=== PATIENT | female | born 1985 | race Two or more races ===

== ENCOUNTER → 2018-08-08 | Outpatient (CLI) | payer OTHER ==
[~2018-08-08] MED LIST: CYCL10TA2 PO; DICL50TA2 PO; DULO30CA2 PO; RANI150T2 PO
--- NOTE | 2018-08-08 17:57 | PAIN ---
DATE OF SERVICE: 08/08/2018 INITIAL CONSULTATION FOR PAIN CLINIC CHIEF COMPLAINT: Low back pain. HISTORY OF PRESENT ILLNESS: This is a 33-year-old female who presents with history of pain in the low back, right greater than left for about 4 months or so, worse in May 2018. The patient reports that it is aching and dull, sharp, stabbing, tingling with numbness across the back, again worse on the right than the left, burning and aching, has been going on for several months now. The patient reports it awakens her from sleep at least twice at night. It does not affect her bowel or bladder control, but sometimes, it affects her ability to walk when she is having pain in the right side more than left. The patient reports she did have past physical therapy also doing stretching and strengthening exercises on her own daily, had a history of outside facility with 2 sets of facet joint injections in May 2018 and June 2018 with reported 80% improvement. For about 5 weeks after the injections, the patient reports she had a third set of injections, but did not have significant improvement, but the first 2, had 80% for about 5 weeks. The patient reports radiofrequency was never done, but it was discussed. The patient rates her disability rate from 0-10, 10 being the worst, is a 5-6 for family home responsibilities, social activity, occupation, sexual behavior, self-care and life support activities and is a 7 on a scale of 10 with recreational activities. The patient did have MRI scan of the lumbar spine that showed some mild degenerative changes at L4-L5 and L5-S1 without foraminal narrowing or stenosis with minimal canal narrowing at L4-L5. Again, the patient reports no radiation to lower extremities. The pain is staying in her back, worse with extension of the spine and axial loading of the lower lumbar spine, more noticeable with standing or sitting, sometimes better with lying down, but again, it awakens her from sleep frequently. PAST MEDICAL HISTORY: Significant for arthritis, gastroesophageal reflux, cigarette smoking less than a pack a day and depression. PAST SURGICAL HISTORY: Includes tonsillectomy and tubal ligation. CURRENT MEDICATIONS: Include Cymbalta, ranitidine, cyclobenzaprine and diclofenac. ALLERGIES: THE PATIENT IS ALLERGIC TO PENICILLIN. FAMILY HISTORY: Significant for cancers, high blood pressure and heart disease. SOCIAL HISTORY: The patient does not drink alcohol. Smokes less than a pack of cigarettes a day, has for about 10 years. Single, has 3 children, living at home, lives locally in [place], [place]. REVIEW OF SYSTEMS: The patient's review of systems is positive for those items mentioned in the history of present illness. All systems reviewed and otherwise negative. It is complete, full and well documented on the patient's chart. PHYSICAL EXAMINATION: VITAL SIGNS: The patient's blood pressure is 109/68, pulse 78, respirations 16, temperature is 98.2 degrees Fahrenheit. Height is 5 feet 7 inches, weight is 203 pounds. GENERAL: The patient is awake, alert, oriented, appropriate, very pleasant demeanor. HEENT: Head shows normocephalic, atraumatic. Extraocular movements are intact and symmetrical. Oral cavity: Mucous membranes are moist and pink. Dentition is intact. NECK: Shows anterior throat supple without palpable lymphadenopathy noted. Swallow reflex symmetrical. CHEST: Shows normal on inspection. Breath sounds clear to auscultation bilaterally. HEART: Shows S1, S2 clear. No murmurs auscultated. ABDOMEN: Soft, nontender, nondistended. No palpable organomegaly is noted. No rebound or guarding demonstrated. BACK: Shows spine grossly in the midline. Normal appearing thoracic kyphosis and lumbar lordotic curvature. Lumbar paraspinous muscle shows symmetrical on inspection, on palpation shows some moderate tenderness diffusely throughout the upper, middle and lower distribution of paraspinous muscles, slightly more on the right lower aspect than the left. No hypertrophy is noted. No tenderness over the spinous processes. The patient has good rotational motion both laterally greater than 10 degrees with some moderate tenderness with 10 degrees of lateral rotation on the right, but not the left. Extension, however, past 10 degrees cause significant pain in the low back, greater on the right than the left, but present bilaterally and reproduces the patient's normal pain by her report, forward flexion decreases this pain at 45 degrees and is performed without difficulty. EXTREMITIES: The patient's lower extremities show deep tendon reflexes at 2+ in the patellar, 1+ in the tendo-calcaneus tendons are equal. Motor exam is strong with 5/5 dorsiflexion, extension, quadriceps and hamstring flexion. Peripheral pulses are 1+ posterior tibial. No peripheral edema is noted. Lower extremities are warm and dry to touch, equal in color and appearance. Straight leg raising noted to be negative for reproduction of radicular symptoms and also negative Gaenslen's and Ant's maneuvers bilaterally. The patient is able to stand, stand on her toes without significant difficulty or loss of balance, not using any assistive devices to ambulate. Has a normal appearing gait. The patient's skin is warm and dry, good turgor. No edema. No sores, rashes or bruising. IMPRESSION: 1. This is a 33-year-old female with approximately 4-month history of increasing low back pain bilaterally, worse on the right than the left consistent with facet syndrome pain. 2. The patient is status post outside facility facet joint injections bilaterally at L4-L5 and L5-S1 with reported 80% improvement for 5 weeks with the injections. 3. Cigarette smoking. 4. Arthritis. 5. Gastroesophageal reflux. PLAN: Options were discussed with the patient including conservative medical management, continued physical therapies, interventional techniques. She would like to pursue interventional techniques as she has had 2 sets of facet joint injections performed already with excellent results. She would like to move on to radiofrequency ablation. We discussed this with her and we will preauthorize this. If not preauthorized because it was done a different facility, we will preauthorize the patient for repeat facet joint injections to verify the amount of relief that she obtained from her previous site of treatment and location of treatment. The patient understands and agrees. We will have the patient return in approximately 1-1/2 weeks and plan on radiofrequency ablation if approved. If not, we will plan on the facet joint injections, L4-L5 and L5-S1 bilaterally. JOSSE POOLE MD DR: HIMANSHU/kp JOB#: [id number] / [id number]
== END | disposition home or self-care (01) ==
LOC: PNCL 10:22
PROVIDERS: ATTEND Anesthesiology
DX: M54.5 Low back pain (principal); F17.210 Nicotine dependence, cigarettes, uncomplicated; K21.9 Gastro-esophageal reflux disease without esophagitis; M19.90 Unspecified osteoarthritis, unspecified site; Z88.0 Allergy status to penicillin; Z98.1 Arthrodesis status; Z82.49 Family history of ischemic heart disease and other diseases of the circulatory system
CPT/HCPCS: G0463

== ENCOUNTER → 2018-08-25 | Outpatient (CLI) | payer OTHER ==
[~2018-08-25] MED LIST changes: +BUPIVACAINE MPF 0.25% 10 ML VIAL. ONE; +LIDOCAINE 1% PF 2 ML VIAL. ONE; +LIDOCAINE 2% PF Vial for OR 5 ML VIAL. ONE; +methylPREDNISolone ACETATE 40 MG/ML VIAL. ONE; +methylPREDNISolone ACETATE 80 MG/ML VIAL. ONE
--- NOTE | 2018-08-25 15:06 | PAIN ---
DATE OF SERVICE: 08/25/2018 DIAGNOSIS: Low back pain with lumbar and lumbosacral spondylosis. HISTORY OF PRESENT ILLNESS: The patient is a 33-year-old female who returns for followup status post previous facet joint medial branch blocks with very good relief, approximately 80% improvement for 5 weeks after her diagnostic blocks were performed. This was at [facility]. She did very well, but relocated as they were unable to repeat this or proceed with radiofrequency ablation, which had been discussed previously. The patient came to our clinic on her last visit with these results and with the records from [facility] justifying this and we had preauthorized her for radiofrequency ablation of bilateral L4-L5 and L5-S1 medial facet branches. The patient reports still significant pain across the low back, left slightly worse than the right, without radiation into lower extremities, rated as 6 on a scale of 10 at its worst, 5 on average and a 5 at its least, and is a 6 today. The patient reports it as sharp, shooting, burning, stabbing across the low back, shooting across the back, again from the left to the right. The patient reports no new motor or sensory deficits. It is much worse with standing, walking, changing positions. It is better with axial loading and extension of the lumbar spine as well as rotation, left greater than right, with rotation of her spine where previously the right side was worse, now the left side is becoming more noticeable. The patient reports no new motor or sensory deficits, no new changes. The patient reports it does awaken her from sleep at night, but not every night. PHYSICAL EXAMINATION: VITAL SIGNS: The patient's blood pressure 134/77, pulse 111, respirations 16, temperature is 97.8 degrees Fahrenheit, and weight is 203 pounds. GENERAL: The patient is awake, alert, oriented, appropriate, very pleasant demeanor. HEENT: Head shows normocephalic, atraumatic. Extraocular muscles are intact and symmetrical. Oral cavity, mucous membranes are moist and pink. Dentition is intact. NECK: Shows anterior throat supple without palpable lymphadenopathy noted. Swallow reflex symmetrical. CHEST: Shows normal on inspection. Breath sounds clear to auscultation bilaterally. HEART: Shows S1, S2 clear. No murmurs auscultated. ABDOMEN: Soft, nontender, nondistended. No palpable organomegaly is noted. No rebound or guarding demonstrated. BACK: The patient's back shows spine grossly in the midline, normal appearing thoracic kyphosis and lumbar lordotic curvature. Lumbar paraspinous muscle shows symmetrical on inspection, with palpation shows some moderate tenderness diffusely bilaterally in the low lumbar distribution, essentially right equal to left without atrophy, hypertrophy, no trigger points, no radiation of pain, no tenderness over the sacrum or sacroiliac regions. Over the spinous processes with direct palpation with rotation shows some moderate tenderness reported with left and right rotation greater than 10 degrees as well as extension greater than 10 degrees with significant pain bilaterally, somewhat worse on the left than the right on exam today, decreased with forward flexion at 45 degrees. EXTREMITIES: The patient's lower extremities show deep tendon reflexes 2+ in the patellar, 1+ tendo calcaneus tendons. Motor exam is 5/5 with dorsiflexion, extension, quadriceps and hamstring flexion, equal. Peripheral pulses are 1+ posterior tibial. No peripheral edema is noted bilaterally. Options were discussed with the patient. The patient's old chart was reviewed as her current medication regimen updated. Current review of systems updated today as well. We will proceed with radiofrequency ablation of the bilateral L4-L5 and L5-S1 medial facet branches under sterile prep and drape using fluoroscopic guidance. Risks were discussed including but not limited to bleeding, infection, possibility of epidural hematoma and subsequent neurological compromise, dural punctures, headaches, spinal cord and/or nerve damage, side effects of steroid medication, exposure to fluoroscopy, potential thermal damage of surrounding nerves and structures, and permanent damage of the motor nerves as well as poor results regarding pain control. The patient understands and wished to proceed. The patient will return to clinic in approximately 3 weeks for followup, was counseled on return appointment, activity level and side effects to be aware of. DIAGNOSES: Low back pain with lumbar and lumbosacral spondylosis. PROCEDURE: Bilateral radiofrequency ablation L4-L5 and L5-S1 medial facet branches under sterile prep and drape using local anesthetic and C-arm fluoroscopic guidance. MEDICATION INJECTED: A total of 6 mL of 2% lidocaine after motor testing, but prior to radiofrequency ablation, 1 mL at each level and a total of 6 mL of 0.25% bupivacaine after radiofrequency ablation with 120 mg total Depo-Medrol after radiofrequency ablation as well. Please see radiofrequency flow sheet for levels, impedances, temperatures, times, etc. CONDITION AT DISCHARGE: Stable. The patient tolerated the procedure well, had no complications. JOSSE POOLE MD DR: HIMANSHU/kp JOB#: [id number] / [id number]
== END | disposition home or self-care (01) ==
LOC: PNCL 13:01
PROVIDERS: ATTEND Anesthesiology
DX: M47.817 Spondylosis without myelopathy or radiculopathy, lumbosacral region (principal); Z88.0 Allergy status to penicillin
CPT/HCPCS: 64635; 64636; J1030; J1040; J2001; J3490